=== PATIENT | male | born 1945 | race Caucasian/White ===

== ENCOUNTER → 2018-12-03 | Outpatient (CLI) | payer MEDICARE, BC ==
[~2018-12-03] MED LIST: ATEN25TA PO; FINA5TAB PO; GABA300C10 PO; INSU100I18 SQ-INSULIN; INSU100I28 SQ-INSULIN; LEVO750T26 PO; LISI5TAB7 PO; METF850T PO; SIMV10TA PO; SULF1TAB24 PO; TAMS-11 PO
== END | disposition home or self-care (01) ==
LOC: CFH 06:37
PROVIDERS: ATTEND Nurse Practitioner
DX: I08.8 Other rheumatic multiple valve diseases (principal); E11.9 Type 2 diabetes mellitus without complications; I10 Essential (primary) hypertension
CPT/HCPCS: 93306

== ENCOUNTER 2018-12-23 16:43 | Outpatient (CLI) | payer MEDICARE, BC | END 2018-12-23 23:59 | disposition home or self-care (01) | LOC: RAD 16:43 | PROVIDERS: ATTEND Family Medicine | DX: M25.441 Effusion, right hand (principal); M79.641 Pain in right hand ==

== ENCOUNTER 2019-12-28 11:28 | Inpatient (IN) | payer MEDICARE ==
[~2019-12-28] VITALS: Ht 177.8 cm; Wt 105.5 kg
[~2019-12-28 11:28] MED LIST changes: +LOSA50TA14 PO; +METH2.5T PO; +SEMA0.25 SQ; +TADA20TA43 PO
[2019-12-28] MEDS ORDERED: PLEASE ENTER HEIGHT AND WEIGHT MC SCH (12:00)
[2019-12-28] MEDS ORDERED: SODIUM CHLORIDE FLUSH 10ML SYR IVF ONE (12:00)
[2019-12-28] MEDS ORDERED: MORPHINE SULFATE 4 MG/ML, 1ML IVPush PRN (12:00)
[2019-12-28 12:09] LABS: BASOPHILS # (AUTO) 0.03 x10^3/uL (0-0.1); BASOPHILS % (AUTO) 0 % (0-1); EOSINOPHILS # (AUTO) 0.21 x10^3/uL (0-0.4); EOSINOPHILS % (AUTO) 2 % (1-7); LYMPHOCYTES # (AUTO) 1.35 x10^3/uL (1-3.4); LYMPHOCYTES % (AUTO) 10 % (22-44); MD NO; MEAN CORPUSCULAR HEMOGLOBIN 28.1 pg (27.5-34.5); MEAN CORPUSCULAR HGB CONC 32.2 g/dL (33.2-36.2); MEAN PLATELET VOLUME 6.3 fL (7.4-10.4); MONOCYTES # (AUTO) 0.05 x10^3/uL (0.2-0.8); MONOCYTES % (AUTO) 0 % (2-9); NEUTROPHILS # (AUTO) 12.32 x10^3/uL (1.8-6.8); NEUTROPHILS % (AUTO) 88 % (42-75); PLATELET COUNT 205 x10^3/uL (130-400); RED BLOOD COUNT 3.47 x10^6/uL (4.38-5.82); RED CELL DISTRIBUTION WIDTH 19.2 % (9.4-14.8)
[2019-12-28 12:18] LABS: ALBUMIN 3.1 g/dL (3.4-5.0); ANION GAP 11 mmol/L (5-15); CALCIUM 9.4 mg/dL (8.5-10.1); CHLORIDE 99 mmol/L (98-107)
[2019-12-28 12:24] LABS: ALANINE AMINOTRANSFERASE 17 U/L (12-78); ALKALINE PHOSPHATASE 60 U/L (45-117); BILIRUBIN,TOTAL 1.6 mg/dL (0.2-1.0); CREATININE 2.36 mg/dL (0.7-1.3); TOTAL PROTEIN 7.9 g/dL (6.4-8.2); TROPONIN I < 0.015 ng/mL (0.000-0.045)
[2019-12-28] MEDS ORDERED: MORPHINE SULFATE 4 MG/ML, 1ML ONE (12:45)
--- NOTE | 2019-12-28 12:52 | NUR ---
DAUGHTER:GENIA GUNN [phone] MEDICATED PER EMAR FOR CONTINUED RIGHT ELBOW PAIN AT 01/22
[2019-12-28] MEDS ORDERED: ABAT125S SC (13:06)
--- NOTE | 2019-12-28 13:06 | NUR ---
WITH FURTHER EVAL. PATIENT REPORTS SORE THROAT AND RIGHT ELBOW PAIN/GENRALIZED WEAKNESS/ACHES NOTICABLY WORSE AFTER ORENCIA INJECTION (NEW INJECTABLE ARTHRITIS MEDICINE RECEIVED YESTERDAY AFTERNOON.) PROVIDER MADE AWARE PAIN IMPROVED TO 0/10 POST MEDICATION ADMIN
[2019-12-28] MEDS ORDERED: SODIUM CHLORIDE 0.9%, 500ML IVBOLUS ONE (13:30)
[2019-12-28] MEDS ORDERED: CARV6.252 PO (13:36)
[2019-12-28] MEDS ORDERED: FURO20TA3 PO (13:36)
[2019-12-28] MEDS ORDERED: TAMS-11 PO ×2 (13:36→18:11)
[2019-12-28] MEDS ORDERED: SPIR25TA5 PO (13:36)
[2019-12-28] MEDS ORDERED: POTA8CAP20 PO (13:36)
--- NOTE | 2019-12-28 13:43 | NUR ---
GERSON CHIN COMPLETED
--- NOTE | 2019-12-28 14:30 | NUR ---
DR. ABEBE (HOSPITALIST) AT BEDSIDE TO ADMIT DIET AND HOSPITAL BED ORDERED
[2019-12-28] MEDS ORDERED: ACETAMINOPHEN 325 MG TABLET PO PRN (15:00)
[2019-12-28] MEDS ORDERED: LABETALOL 5MG/ML, 20ML IVPush PRN (15:00)
[2019-12-28] MEDS ORDERED: hydrALAzine 20 MG/ML, 1ML IVPush PRN (15:00)
[2019-12-28] MEDS ORDERED: morphine SULFATE 10 MG/ML, 1ML IVPush PRN (15:00)
[2019-12-28] MEDS ORDERED: ONDANSETRON 2MG/ML, 2ML IVPush PRN (15:00)
--- NOTE | 2019-12-28 15:22 | NUR ---
PRE-MEAL [facility]BS 112 aTTEMPTED TO CALL REPORT- RN UNAVAILABLE PLACED ON HOSPITAL BED LAB AT BEDSIDE- BLOOD CULTURES DRAWN
--- NOTE | 2019-12-28 15:41 | NUR ---
REPORT CALLED-PATIENT'S CHART PUT UP FOR TRANSFER REPORT TO [facility]
[2019-12-28 15:45] LABS: TROPONIN I < 0.015 ng/mL (0.000-0.045)
--- NOTE | 2019-12-28 15:53 | NUR ---
REPORT FROM YAHAIRA RENEE. PT CARE RESPONSIBILITIES ASSUMED.
[2019-12-28] MEDS: INSULIN LISPRO 100 UNITS/ML, PEN SQ-INSULIN SCH ×2 (16:00→21:58)
[2019-12-28 16:37] VITALS: BP 121/57
[2019-12-28] MEDS ORDERED: METF500T17 PO (18:11)
[2019-12-28] MEDS ORDERED: ATOR20TA37 PO (18:11)
[2019-12-28] MEDS ORDERED: PIOG30TA68 PO (18:11)
[2019-12-28] MEDS: GABAPENTIN 300 MG CAPSULE PO SCH ×2 (18:15→21:58)
[2019-12-28] MEDS: FUROSEMIDE 20 MG/2 ML IV SCH (18:21)
[2019-12-28 18:26] VITALS: BP 119/60
[2019-12-28] MEDS: HEPARIN 5,000 UNITS/ML, 1ML SQ SCH (20:54)
[2019-12-28] MEDS: SIMVASTATIN 10 MG TABLET PO SCH (20:54)
[2019-12-28 21:28] LABS: TROPONIN I < 0.015 ng/mL (0.000-0.045)
[2019-12-28 23:51] LABS: MICROSCOPIC NOT IND
[2019-12-29 00:23] VITALS: BP 112/61
[2019-12-29] MEDS: OXYcodone/APAP 5/325MG TABLET PO PRN ×2 (03:18→04:00)
[2019-12-29] MEDS: HEPARIN 5,000 UNITS/ML, 1ML SQ SCH ×3 (06:11→20:23)
[2019-12-29] MEDS: GABAPENTIN 300 MG CAPSULE PO SCH ×5 (06:11→20:23)
[2019-12-29 06:35] LABS: ALBUMIN 2.4 g/dL (3.4-5.0); ANION GAP 7 mmol/L (5-15); CALCIUM 8.7 mg/dL (8.5-10.1); CHLORIDE 99 mmol/L (98-107)
[2019-12-29 06:37] LABS: BASOPHILS # (AUTO) 0.02 x10^3/uL (0-0.1); BASOPHILS % (AUTO) 0 % (0-1); EOSINOPHILS # (AUTO) 0.25 x10^3/uL (0-0.4); EOSINOPHILS % (AUTO) 3 % (1-7); LYMPHOCYTES # (AUTO) 0.99 x10^3/uL (1-3.4); LYMPHOCYTES % (AUTO) 11 % (22-44); MD NO; MEAN CORPUSCULAR HEMOGLOBIN 28.6 pg (27.5-34.5); MEAN PLATELET VOLUME 6.5 fL (7.4-10.4); MONOCYTES # (AUTO) 0.21 x10^3/uL (0.2-0.8); MONOCYTES % (AUTO) 2 % (2-9); NEUTROPHILS # (AUTO) 7.61 x10^3/uL (1.8-6.8); NEUTROPHILS % (AUTO) 84 % (42-75); PLATELET COUNT 169 x10^3/uL (130-400); RED BLOOD COUNT 3.04 x10^6/uL (4.38-5.82); RED CELL DISTRIBUTION WIDTH 19.2 % (9.4-14.8)
[2019-12-29 06:38] LABS: ALANINE AMINOTRANSFERASE 13 U/L (12-78); ALKALINE PHOSPHATASE 51 U/L (45-117); BILIRUBIN,TOTAL 1.3 mg/dL (0.2-1.0); CREATININE 2.03 mg/dL (0.7-1.3); TOTAL PROTEIN 6.9 g/dL (6.4-8.2)
[2019-12-29 06:49] VITALS: BP 118/60
[2019-12-29] MEDS: INSULIN LISPRO 100 UNITS/ML, PEN SQ-INSULIN SCH ×4 (08:31→21:19)
[2019-12-29] MEDS: FINASTERIDE 5 MG TABLET PO SCH (08:32)
[2019-12-29] MEDS: TAMSULOSIN 0.4 MG CAP.ER.24H PO SCH (08:32)
[2019-12-29] MEDS: CARVEDILOL 6.25 MG TABLET PO SCH (08:32)
[2019-12-29] MEDS: FUROSEMIDE 20 MG/2 ML IV SCH ×2 (08:33→18:14)
[2019-12-29] MEDS ORDERED: METHOTREXATE 2.5 MG TABLET PO SCH (09:00)
[2019-12-29 12:03] VITALS: BP 118/64
[2019-12-29] MEDS: methylPREDNISolone SOD SUCC 40 MG/ML IV SCH (18:15)
[2019-12-29 18:33] VITALS: BP 115/61
[2019-12-29] MEDS: SIMVASTATIN 10 MG TABLET PO SCH (20:23)
[2019-12-30 00:10] VITALS: BP 131/68
[2019-12-30] MEDS: HEPARIN 5,000 UNITS/ML, 1ML SQ SCH ×3 (05:14→22:10)
[2019-12-30] MEDS: GABAPENTIN 300 MG CAPSULE PO SCH ×5 (05:14→22:10)
[2019-12-30 06:12] LABS: ANION GAP 8 mmol/L (5-15); CALCIUM 8.7 mg/dL (8.5-10.1); CHLORIDE 98 mmol/L (98-107); CREATININE 1.66 mg/dL (0.7-1.3)
[2019-12-30 08:12] VITALS: BP 124/71
[2019-12-30] MEDS: CARVEDILOL 6.25 MG TABLET PO SCH (08:36)
[2019-12-30] MEDS: FINASTERIDE 5 MG TABLET PO SCH (08:36)
[2019-12-30] MEDS: TAMSULOSIN 0.4 MG CAP.ER.24H PO SCH (08:36)
[2019-12-30] MEDS: methylPREDNISolone SOD SUCC 40 MG/ML IV SCH (08:37)
[2019-12-30] MEDS: FUROSEMIDE 20 MG/2 ML IV SCH ×2 (08:37→17:56)
[2019-12-30] MEDS: INSULIN LISPRO 100 UNITS/ML, PEN SQ-INSULIN SCH ×4 (08:38→22:10)
[2019-12-30] MEDS ORDERED: METHOTREXATE 2.5 MG TABLET PO SCH (09:00)
[2019-12-30 11:58] VITALS: BP 132/62
[2019-12-30 12:07] VITALS: BP 134/65
[2019-12-30 19:00] VITALS: BP 144/65
[2019-12-30] MEDS: SIMVASTATIN 10 MG TABLET PO SCH (22:10)
[2019-12-31 00:51] VITALS: BP 137/66
[2019-12-31] MEDS: HEPARIN 5,000 UNITS/ML, 1ML SQ SCH ×2 (05:30→15:42)
[2019-12-31] MEDS: GABAPENTIN 300 MG CAPSULE PO SCH ×5 (05:30→22:36)
[2019-12-31 06:00] LABS: BASOPHILS # (AUTO) 0.03 x10^3/uL (0-0.1); BASOPHILS % (AUTO) 0 % (0-1); EOSINOPHILS % (AUTO) 3 % (1-7); LYMPHOCYTES # (AUTO) 1.61 x10^3/uL (1-3.4); LYMPHOCYTES % (AUTO) 20 % (22-44); MD NO; MEAN CORPUSCULAR HEMOGLOBIN 28.5 pg (27.5-34.5); MEAN CORPUSCULAR HGB CONC 32.9 g/dL (33.2-36.2); MONOCYTES # (AUTO) 0.31 x10^3/uL (0.2-0.8); MONOCYTES % (AUTO) 4 % (2-9); NEUTROPHILS # (AUTO) 6.01 x10^3/uL (1.8-6.8); NEUTROPHILS % (AUTO) 74 % (42-75); PLATELET COUNT 170 x10^3/uL (130-400); RED BLOOD COUNT 2.98 x10^6/uL (4.38-5.82); RED CELL DISTRIBUTION WIDTH 18.5 % (9.4-14.8)
[2019-12-31 06:16] LABS: ANION GAP 7 mmol/L (5-15); CALCIUM 8.5 mg/dL (8.5-10.1); CHLORIDE 98 mmol/L (98-107)
[2019-12-31 06:18] LABS: CREATININE 1.38 mg/dL (0.7-1.3)
[2019-12-31 06:52] VITALS: BP 132/69
[2019-12-31] MEDS: methylPREDNISolone SOD SUCC 40 MG/ML IV SCH (08:05)
[2019-12-31] MEDS: TAMSULOSIN 0.4 MG CAP.ER.24H PO SCH (08:06)
[2019-12-31] MEDS: FINASTERIDE 5 MG TABLET PO SCH (08:06)
[2019-12-31] MEDS: CARVEDILOL 6.25 MG TABLET PO SCH (08:06)
[2019-12-31] MEDS: FUROSEMIDE 20 MG/2 ML IV SCH ×2 (08:06→16:22)
[2019-12-31] MEDS: INSULIN LISPRO 100 UNITS/ML, PEN SQ-INSULIN SCH ×4 (08:07→20:18)
[2019-12-31 12:16] VITALS: BP 134/73
[2019-12-31] MEDS ORDERED: PRED5TAB19 PO (12:56)
[2019-12-31] MEDS ORDERED: INSU100C5 SQ-INSULIN (13:00)
[2019-12-31 19:25] VITALS: BP 130/72
[2019-12-31] MEDS: SIMVASTATIN 10 MG TABLET PO SCH (20:18)
[2020-01-01] MEDS: HEPARIN 5,000 UNITS/ML, 1ML SQ SCH ×2 (00:24→08:16)
[2020-01-01 01:58] VITALS: BP 132/73
[2020-01-01] MEDS: GABAPENTIN 300 MG CAPSULE PO SCH ×2 (05:52→10:10)
[2020-01-01] MEDS ORDERED: INSULIN GLARGINE 100 UNITS/ML, PEN SQ-INSULIN ONE (07:30)
[2020-01-01 07:47] VITALS: BP 148/76
[2020-01-01] MEDS: TAMSULOSIN 0.4 MG CAP.ER.24H PO SCH (08:15)
[2020-01-01] MEDS: methylPREDNISolone SOD SUCC 40 MG/ML IV SCH (08:16)
[2020-01-01] MEDS: CARVEDILOL 6.25 MG TABLET PO SCH (08:16)
[2020-01-01 08:36] LABS: ANION GAP 4 mmol/L (5-15); CHLORIDE 97 mmol/L (98-107); CREATININE 1.37 mg/dL (0.7-1.3)
[2020-01-01] MEDS ORDERED: LISINOPRIL 5 MG TABLET PO SCH (09:00)
[2020-01-01] MEDS ORDERED: FUROSEMIDE 40 MG TABLET PO SCH (09:00)
[2020-01-01] MEDS: INSULIN LISPRO 100 UNITS/ML, PEN SQ-INSULIN SCH ×2 (09:24→12:03)
[2020-01-01] MEDS: FINASTERIDE 5 MG TABLET PO SCH (10:10)
== END 2020-01-01 12:36 | disposition home or self-care (01) | DRG 545 ==
LOC: ED 14:26 → EDIP 14:34 → 4NW 16:34 → 3N 12-30 18:24 → DCLOUNGE 01-01 12:27
PROVIDERS: ADMIT Internal Medicine; ATTEND Hospitalist
DX: M06.821 Other specified rheumatoid arthritis, right elbow (principal); N17.0 Acute kidney failure with tubular necrosis; I50.33 Acute on chronic diastolic (congestive) heart failure; E87.1 Hypo-osmolality and hyponatremia; I13.0 Hypertensive heart and chronic kidney disease with heart failure and stage 1 through stage 4 chronic kidney disease, or unspecified chronic kidney disease; N18.4 Chronic kidney disease, stage 4 (severe); E78.5 Hyperlipidemia, unspecified; N40.0 Benign prostatic hyperplasia without lower urinary tract symptoms; E11.22 Type 2 diabetes mellitus with diabetic chronic kidney disease; J06.9 Acute upper respiratory infection, unspecified; D64.9 Anemia, unspecified; R26.89 Other abnormalities of gait and mobility; E11.65 Type 2 diabetes mellitus with hyperglycemia; D72.810 Lymphocytopenia; I08.0 Rheumatic disorders of both mitral and aortic valves; I27.20 Pulmonary hypertension, unspecified; T38.0X5A Adverse effect of glucocorticoids and synthetic analogues, initial encounter; Z20.828 Contact with and (suspected) exposure to other viral communicable diseases; Z79.4 Long term (current) use of insulin; Z91.013 Allergy to seafood; M50.323 Other cervical disc degeneration at C6-C7 level
CPT/HCPCS: 36415; 70490; 71045; 76770; 80048; 80053; 81001; 81003; 82962; 83036; 83880; 84145; 84484; 85025; 87040; 87635; 93005; G0378; J1644; J8610; J1815; J1940; J2270; J2920; J7040

== ENCOUNTER → 2020-03-29 | Outpatient (CLI) | payer MEDICARE ==
[~2020-03-29] MED LIST changes: +ABAT125S SC; +ATOR20TA37 PO; +CARV6.252 PO; +FURO20TA3 PO; +INSU100C5 SQ-INSULIN; +METF500T17 PO; +PIOG30TA68 PO; +POTA8CAP20 PO; +PRED5TAB19 PO; +SPIR25TA5 PO
== END | disposition home or self-care (01) ==
LOC: CFH 13:59
PROVIDERS: ATTEND Registered Nurse
DX: I08.3 Combined rheumatic disorders of mitral, aortic and tricuspid valves (principal); I11.9 Hypertensive heart disease without heart failure
CPT/HCPCS: 93306

== ENCOUNTER → 2020-12-27 | Outpatient (CLI) | payer MEDICARE ==
[~2020-12-27] MED LIST changes: +SULF-23 PO; -SULF1TAB24 PO
== END | disposition home or self-care (01) ==
LOC: CVU 15:55
PROVIDERS: ATTEND Internal Medicine Cardiovascular Disease
DX: I08.0 Rheumatic disorders of both mitral and aortic valves (principal); E11.9 Type 2 diabetes mellitus without complications
CPT/HCPCS: 93306

== ENCOUNTER 2021-03-08 07:19 | Observation (INO) | payer MEDICARE ==
[~2021-03-08] VITALS: Ht 177.8 cm; Wt 107.2 kg
[2021-03-09 08:58] VITALS: BP 101/63
== END 2021-03-09 13:36 | disposition home or self-care (01) ==
LOC: CACL 07:19 → 5SO 11:45 → CACL 15:02
PROVIDERS: ADMIT Internal Medicine Cardiovascular Disease; ATTEND Internal Medicine Cardiovascular Disease
DX: I35.0 Nonrheumatic aortic (valve) stenosis (principal); I42.9 Cardiomyopathy, unspecified; I25.10 Atherosclerotic heart disease of native coronary artery without angina pectoris; I11.0 Hypertensive heart disease with heart failure; I50.9 Heart failure, unspecified; J44.9 Chronic obstructive pulmonary disease, unspecified; E11.9 Type 2 diabetes mellitus without complications; Z86.14 Personal history of Methicillin resistant Staphylococcus aureus infection; Z79.899 Other long term (current) drug therapy